=== PATIENT | male | born 1975 ===

== ENCOUNTER 2017-05-29 13:55 | Emergency (ER) | payer OTHER ==
[2017-05-29 14:04] VITALS: RESP 18; TEMP 98.8
--- NOTE | 2017-05-29 15:25 | C.PDOC ---
History Of Present Illness Erick Ricardo is a 42 year old male, with no significant past medical history, who present to the emergency department complaining of headache, chills , dry cough, sore throat and bodyaches onset for x 1 day. Patient denies taking any analgesics. He denies any chest pain, shortness of breath or sick contacts. No further medical complaints. PMD: None provided. Time Seen by Provider: 05/29/17 14:51 Chief Complaint (Nursing): Cough, Cold, Congestion History Per: Patient History/Exam Limitations: no limitations Onset/Duration Of Symptoms: Days (x1) Current Symptoms Are (Timing): Still Present Location Of Pain: Headache Sick Contacts (Context): None Associated Symptoms: Chills, Sore Throat, Cough (dry), Other (body aches) Ear Symptoms: Bilateral: None Past Medical History Reviewed: Historical Data, Nursing Documentation, Vital Signs Vital Signs: Last Vital Signs Temp 98.8 F 05/29/17 14:02 Pulse 88 05/29/17 15:54 Resp 18 05/29/17 15:54 BP 124/82 05/29/17 15:54 Pulse Ox 97 05/29/17 15:54 - Medical History PMH: No Chronic Diseases Surgical History: No Surg Hx Family History: States: Unknown Family Hx - Social History Hx Tobacco Use: Yes (Current some days smoker) Hx Alcohol Use: Yes Hx Substance Use: No - Immunization History Hx Tetanus Toxoid Vaccination: No Hx Influenza Vaccination: No Hx Pneumococcal Vaccination: No Review Of Systems Constitutional: Positive for: Chills, Other (body aches) ENT: Positive for: Throat Pain Cardiovascular: Negative for: Chest Pain Respiratory: Positive for: Cough (dry). Negative for: Shortness of Breath Neurological: Positive for: Headache Physical Exam - Physical Exam Appears: Well, No Acute Distress Skin: Normal Color, Warm, Dry Head: Atraumatic, Normacephalic Eye(s): bilateral: Normal Inspection, PERRL, EOMI Ear(s): Bilateral: Normal Nose: Normal Oral Mucosa: Moist Throat: Normal Neck: Normal ROM, Supple Chest: No Tenderness Cardiovascular: Rhythm Regular, No Murmur Respiratory: Normal Breath Sounds (clear b/l), No Wheezing Gastrointestinal/Abdominal: Normal Exam, Soft, No Tenderness, No Guarding, No Rebound Back: Normal Inspection, No CVA Tenderness, No Vertebral Tenderness, No Paraspinal Tenderness Extremity: Normal ROM, No Tenderness, No Deformity, No Swelling Neurological/Psych: Oriented x3 Gait: Steady ED Course And Treatment O2 Sat by Pulse Oximetry: 96 (RA) Pulse Ox Interpretation: Normal Medical Decision Making Medical Decision Making: Initial Impression: Influenza Initial Plan: --Tylenol 325mg tab 975 mg PO --Reevaluation pt with one of of flu like symptoms. will tx with tamiflu, ibuprofen. pt appears well,, non toxic. Disposition Counseled Patient/Family Regarding: Diagnosis, Need For Followup, Rx Given - Disposition Referrals: [facility] [Outside] Disposition: HOME/ ROUTINE Disposition Time: 15:45 Condition: STABLE Additional Instructions: Recomienda el aumento del flujo de lquidos y el reposo en cama. Caroleen ibuprofeno para [place] corporales o fiebre segn lo prescrito. Caroleen Tamiflu seg n lo prescrito. Itz un seguimiento en la clnica mdica en unos rmairez. Prescriptions: Ibuprofen [Motrin] 600 mg PO TID #30 tab Oseltamivir Phosphate [Tamiflu] 75 mg PO BID #10 capsule Instructions: Influenza (ED) Forms: Gen Discharge Inst North Korean, Azoi ([place] Korean) Print Language: LIBYAN - Clinical Impression Clinical Impression: Influenza-like illness
[2017-05-29 15:55] VITALS: BP 124/82; PULSE 88
[2017-05-29 17:26] VITALS: O2SAT 96
== END 2017-05-29 15:55 | disposition home or self-care (01) ==
LOC: C.ER 13:55
DX: J11.1 Influenza due to unidentified influenza virus with other respiratory manifestations (principal); Z87.891 Personal history of nicotine dependence